=== PATIENT | male | born 1990 | race American Indian/Alaskan Native ===

== ENCOUNTER 2017-04-05 11:17 | Emergency (ER) | payer OTHER ==
[2017-04-05 11:28] VITALS: PULSE 80; RESP 18; O2SAT 100; BMI 19.1
[2017-04-05] MEDS ORDERED: Morphine 4 mg/ml ISec IVP STA (12:02)
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
[2017-04-05 12:42] LABS: ADD MANUAL DIFF? NO
[2017-04-05 12:48] LABS: BASO # 0.03 K/mm3 (0.0-2.0); BASO % 0.4 % (0.0-3.0); EOS # 0.1 (0.0-0.7); EOS % 0.6 % (1.5-5.0); GRAN # 5.94 (1.4-6.5); GRAN % 74.1 % (50.0-68.0); HEMATOCRIT 39.9 % (42.0-52.0); LYMPH # 1.7 (1.2-3.4); LYMPH % 21.5 % (22.0-35.0); MEAN CELL VOLUME 89.7 fL (80.0-105.0); MEAN CORPUSCULAR HEMOGLOBIN 29.7 pg (25.0-35.0); MEAN CORPUSCULAR HGB CONC 33.1 g/dl (31.0-37.0); MONO # 0.3 (0.1-0.6); MONO % 3.4 % (1.0-6.0); PLATELET COUNT 257 10^3/uL (120.0-450.0); RED CELL DISTRIBUTION WIDTH 12.4 % (11.5-14.5)
[2017-04-05 12:56] LABS: INR 1.11 (0.93-1.08); PARTIAL THROMBOPLASTIN TIME 28.1 Seconds (23.7-30.8)
[2017-04-05 13:00] LABS: ALB/GLOB RATIO 1.2 (1.1-1.8); ALKALINE PHOSPHATASE 83 U/L (38-133); ALT/SGPT 112 U/L (7-56); AST/SGOT 42 U/L (15-59); BILIRUBIN,TOTAL 0.7 mg/dL (0.2-1.3); BLOOD UREA NITROGEN 23 mg/dL (7-21); CALCIUM 9.8 mg/dL (8.4-10.5); CARBON DIOXIDE 26 mmol/L (21-33); CHLORIDE 101 mmol/L (98-107); GFR AFRICAN-AMERICAN > 60; GLUCOSE,RANDOM 75 mg/dL (70-110); MAGNESIUM 1.8 mg/dL (1.7-2.2); SODIUM 139 mmol/L (132-148); TOTAL PROTEIN 7.8 g/dL (5.8-8.3)
[2017-04-05 13:12] LABS: TROPONIN I < 0.01 ng/mL
[2017-04-05] MEDS ORDERED: Iohexol 350 MG/100 ML VIAL ONE (13:23)
--- NOTE | 2017-04-05 14:00 | RAD ---
PROCEDURE: CHEST RADIOGRAPH, 1 VIEW HISTORY: Chest pain COMPARISON: None available. FINDINGS: LUNGS: The lungs are well inflated and clear. PLEURA: No pneumothorax or pleural fluid seen. CARDIOVASCULAR: Normal. OSSEOUS STRUCTURES: No significant abnormalities. VISUALIZED UPPER ABDOMEN: Normal. OTHER FINDINGS: None. IMPRESSION: No active pulmonary disease.
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
[2017-04-05 15:07] VITALS: BP 109/60; TEMP 97.7
--- NOTE | 2017-04-05 15:13 | CARD ---
APPROVED REPORT EKG Measurement Heart [id number] <Conclusion> Normal sinus rhythm Normal ECG
== END 2017-04-05 15:20 | disposition home or self-care (01) ==
LOC: ED 11:17
DX: S21.119D Laceration without foreign body of unspecified front wall of thorax without penetration into thoracic cavity, subsequent encounter (principal); W26.8XXD Contact with other sharp object(s), not elsewhere classified, subsequent encounter; R07.9 Chest pain, unspecified
CPT/HCPCS: 71010; 71260; 74160; 80053; 82550; 83615; 83735; 84484; 85025; 85610; 85730; 86850; 86900; 93005; 96374; 99283; J2270; Q9967